=== PATIENT | female | born 1940 | race Caucasian/White ===

== ENCOUNTER → 2016-10-08 | Outpatient (REF) | payer MEDICARE ==
[2016-10-08 11:51] LABS: ALBUMIN 3.9 GM/DL (3.2-5.2); ALBUMIN/GLOBULIN RATIO 1.34 (1.00-1.93); ALKALINE PHOSPHATASE 64 U/L (45-117); ALT/SGPT 25 U/L (12-78); ANION GAP 8 MEQ/L (8-16); AST/SGOT 17 U/L (15-37); BILIRUBIN,TOTAL 0.4 MG/DL (0.2-1.0); BLOOD UREA NITROGEN 12 MG/DL (7-18); CALCIUM LEVEL 9.2 MG/DL (8.8-10.2); CARBON DIOXIDE LEVEL 31 MEQ/L (21-32); CHLORIDE LEVEL 96 MEQ/L (98-107); CHOLESTEROL LEVEL 269 MG/DL (<200); CREATININE FOR GFR 0.72 MG/DL (0.55-1.02); GLOMERULAR FILTRATION RATE > 60.0 (>39); GLUCOSE, FASTING 90 MG/DL (83-110); POTASSIUM SERUM 4.3 MEQ/L (3.5-5.1); SODIUM LEVEL 135 MEQ/L (136-145); TOTAL PROTEIN 6.8 GM/DL (6.4-8.2); TRIGLYCERIDES LEVEL 91 MG/DL (<150)
== END ==
LOC: M SFHCPLAZ 08:22
PROVIDERS: ATTEND Internal Medicine
DX: I10 Essential (primary) hypertension (principal); E78.00 Pure hypercholesterolemia, unspecified

== ENCOUNTER → 2017-03-10 | Outpatient (CLI) | payer MEDICARE ==
[~2017-03-10] VITALS: Ht 170.2 cm; Wt 52.2 kg
[~2017-03-10] MED LIST: ARIC10TA PO; CRES5TAB PO; FOSI20TA5 PO; LIDOCAINE 2% INJ 100 MG/5 ML SDV (FOR ANES.) As Ordered ONE; NORT10CA2 PO; NS 1,000 ML IV ONE; PROPOFOL 500 MG/50 ML VIAL As Ordered ONE; TEGR200T PO
[2017-03-10 10:57] VITALS: BP 145/72
== END | disposition home or self-care (01) ==
LOC: M OPP 08:42
PROVIDERS: ATTEND Internal Medicine Gastroenterology
DX: Z12.11 Encounter for screening for malignant neoplasm of colon (principal); D12.5 Benign neoplasm of sigmoid colon; K57.30 Diverticulosis of large intestine without perforation or abscess without bleeding; I10 Essential (primary) hypertension; E78.5 Hyperlipidemia, unspecified; G50.0 Trigeminal neuralgia; Z79.899 Other long term (current) drug therapy

== ENCOUNTER → 2017-05-06 | Outpatient (CLI) | payer MEDICARE ==
[~2017-05-06] MED LIST changes: -ARIC10TA PO; +ARIC1TAB2 PO; -LIDOCAINE 2% INJ 100 MG/5 ML SDV (FOR ANES.) As Ordered ONE; +MACR100C43 PO; -NS 1,000 ML IV ONE; -PROPOFOL 500 MG/50 ML VIAL As Ordered ONE
[2017-05-06 11:12] LABS: ALBUMIN 3.8 GM/DL (3.2-5.2); ALBUMIN/GLOBULIN RATIO 1.23 (1.00-1.93); ALKALINE PHOSPHATASE 74 U/L (45-117); ALT/SGPT 28 U/L (12-78); ANION GAP 6 MEQ/L (8-16); AST/SGOT 18 U/L (15-37); BILIRUBIN,TOTAL 0.5 MG/DL (0.2-1.0); BLOOD UREA NITROGEN 13 MG/DL (7-18); CALCIUM LEVEL 9.1 MG/DL (8.8-10.2); CARBON DIOXIDE LEVEL 32 MEQ/L (21-32); CHLORIDE LEVEL 106 MEQ/L (98-107); CHOLESTEROL LEVEL 234 MG/DL (<200); CREATININE FOR GFR 0.72 MG/DL (0.55-1.02); GLOMERULAR FILTRATION RATE > 60.0 (>39); GLUCOSE, FASTING 78 MG/DL (83-110); POTASSIUM SERUM 4.5 MEQ/L (3.5-5.1); SODIUM LEVEL 144 MEQ/L (136-145); TOTAL PROTEIN 6.9 GM/DL (6.4-8.2); TRIGLYCERIDES LEVEL 92 MG/DL (<150)
== END ==
LOC: M SMT 08:27
PROVIDERS: ATTEND Internal Medicine
DX: Z00.00 Encounter for general adult medical examination without abnormal findings (principal); E78.00 Pure hypercholesterolemia, unspecified; I10 Essential (primary) hypertension

== ENCOUNTER 2017-06-19 06:57 | Emergency (ER) | payer MEDICARE ==
[~2017-06-19] VITALS: Ht 167.6 cm; Wt 47.7 kg
[~2017-06-19 06:57] MED LIST changes: -MACR100C43 PO
[2017-06-19] MEDS ORDERED: MECLIZINE 12.5 MG TAB PO ONE (07:45)
[2017-06-19 08:19] LABS: BASO % 0.3 % (0.0-1.0); EOS % 0.6 % (0.0-3.0); IMMATURE GRANULOCYTE % 0.3 % (0-0); LYMPH % 11.4 % (24.0-44.0); MEAN CORPUSCULAR HEMOGLOBIN 33.2 pg (27.0-33.0); MEAN CORPUSCULAR HGB CONC 34.3 g/dl (32.0-36.5); MEAN CORPUSCULAR VOLUME 96.6 fl (80.0-96.0); MONO # 0.3 10^3/uL (0.0-0.8); MONO % 10.5 % (0.0-5.0); NEUTROPHILS # 2.5 10^3/uL (1.8-7.7); NEUTROPHILS % 76.9 % (36.0-66.0); PLATELET COUNT, AUTOMATED 197 10^3/uL (150-450); RED CELL DISTRIBUTION WIDTH 12.5 % (11.5-14.5); WHITE BLOOD COUNT 3.3 10^3/uL (4.0-10.0)
[2017-06-19 08:21] LABS: LYMPH # 0.4 10^3/uL (1.5-4.5)
--- NOTE | 2017-06-19 08:24 | REP ---
CT Head without contrast HISTORY: Vertigo COMPARISON: None Areas of decreased attenuation are present in the periventricular white matter. This represents small-vessel ischemic disease. There is no intraparenchymal hemorrhage, acute infarct, mass or midline shift. The ventricular system and cortical sulci are dilated consistent with minimal volume loss. There is no extra cerebral collection. There is no fracture. The visualized sinuses are clear. A sebaceous cyst is present in the subcutaneous tissue overlying the right parietal bone. IMPRESSION: 1. Small vessel ischemic disease per 2. Minimal volume loss. Signed by Rashid Medrano MD 06/19/2017 08:16 A
--- NOTE | 2017-06-19 09:26 | REP ---
Chest two views HISTORY: Weakness Comparison: 02/25/2012 The lungs are hyperinflated. The lungs are clear. The heart is normal in size. The pulmonary vasculature is normal in appearance. The bony structure is intact. IMPRESSION: No acute disease. Signed by Rashid Medrano MD 06/19/2017 09:17 A
[2017-06-19 09:29] LABS: ALBUMIN 3.6 GM/DL (3.2-5.2); ALBUMIN/GLOBULIN RATIO 1.24 (1.00-1.93); ALKALINE PHOSPHATASE 58 U/L (45-117); ALT/SGPT 28 U/L (12-78); ANION GAP 5 MEQ/L (8-16); AST/SGOT 21 U/L (15-37); BILIRUBIN,DIRECT 0.1 MG/DL (0.0-0.2); BILIRUBIN,TOTAL 0.4 MG/DL (0.2-1.0); BLOOD UREA NITROGEN 16 MG/DL (7-18); CALCIUM LEVEL 8.9 MG/DL (8.8-10.2); CARBON DIOXIDE LEVEL 32 MEQ/L (21-32); CHLORIDE LEVEL 102 MEQ/L (98-107); CREATININE FOR GFR 0.67 MG/DL (0.55-1.02); GLOMERULAR FILTRATION RATE > 60.0 (>39); GLUCOSE, FASTING 85 MG/DL (83-110); POTASSIUM SERUM 3.9 MEQ/L (3.5-5.1); SODIUM LEVEL 139 MEQ/L (136-145); TOTAL PROTEIN 6.5 GM/DL (6.4-8.2)
--- NOTE | 2017-06-19 13:20 | REP ---
MR BRAIN WITHOUT CONTRAST: HISTORY: Confusion. COMPARISON: CT 06/19/2017. Areas of increased signal intensity on T2-weighted images are present in the periventricular and subcortical white matter. This represents small vessel ischemic disease. There is no intraparenchymal hemorrhage, acute infarct, mass or midline shift. The ventricular system and cortical sulci are dilated consistent with minimal volume loss. There is no extracerebral collection. The sinuses are clear. IMPRESSION: 1. Small vessel ischemic disease. 2. Minimal volume loss. Signed by Rashid Medrano MD 06/19/2017 01:25 P
[2017-06-19 14:19] LABS: CARBAMAZEPINE (TEGRETOL) LEVEL 17.7 UG/ML (4.0-10.0)
[2017-06-19] MEDS ORDERED: MACR100C43 PO (14:35)
[2017-06-19 14:52] VITALS: BP 158/72
--- NOTE | 2017-06-19 20:46 | ECGEPIP ---
Stationary ECG Study [facility] - ED Test Date: 2017-06-19 Pat Name: WILLIE ROBERTS Department: Room: - Gender: F Cd Mixer: torie : 1940 Requested By: JOSEPH Jeong Order Number: [id number] Reading MD: Justina Gallego Measurements Intervals [place] Rate: 78 P: 86 MN: 195 QRS: 56 QRSD: 100 T: 53 QT: 375 QTc: 427 Interpretive Statements SINUS RHYTHM SIMILAR 02/25/12 Electronically Signed On 06-19-2017 20:45:51 EDT by Justina Gallego
== END 2017-06-19 14:54 | disposition home or self-care (01) ==
LOC: M ED 06:57
DX: R27.0 Ataxia, unspecified (principal); N39.0 Urinary tract infection, site not specified; F03.90 Unspecified dementia, unspecified severity, without behavioral disturbance, psychotic disturbance, mood disturbance, and anxiety; G50.0 Trigeminal neuralgia; I10 Essential (primary) hypertension; Z79.899 Other long term (current) drug therapy

== ENCOUNTER 2017-10-20 11:44 | Inpatient (IN) | payer MEDICARE ==
[2017-10-20] MEDS: NS 1,000 ML IV (13:16)
[2017-10-20 13:31] LABS: BASO % 0.3 % (0.0-1.0); EOS % 0.6 % (0.0-3.0); HEMATOCRIT 38.4 % (36.0-47.0); IMMATURE GRANULOCYTE % 1.1 % (0-0); LYMPH # 0.5 10^3/uL (1.5-4.5); LYMPH % 14.3 % (24.0-44.0); MEAN CORPUSCULAR HEMOGLOBIN 33.3 pg (27.0-33.0); MEAN CORPUSCULAR HGB CONC 33.9 g/dl (32.0-36.5); MEAN CORPUSCULAR VOLUME 98.5 fl (80.0-96.0); MONO # 0.3 10^3/uL (0.0-0.8); MONO % 8.3 % (0.0-5.0); NEUTROPHILS # 2.6 10^3/uL (1.8-7.7); NEUTROPHILS % 75.4 % (36.0-66.0); PLATELET COUNT, AUTOMATED 181 10^3/uL (150-450); RED CELL DISTRIBUTION WIDTH 12.4 % (11.5-14.5); WHITE BLOOD COUNT 3.5 10^3/uL (4.0-10.0)
[2017-10-20 13:35] LABS: ANION GAP 8 MEQ/L (8-16); BLOOD UREA NITROGEN 16 MG/DL (7-18); CALCIUM LEVEL 8.5 MG/DL (8.8-10.2); CARBON DIOXIDE LEVEL 29 MEQ/L (21-32); CHLORIDE LEVEL 103 MEQ/L (98-107); CREATININE FOR GFR 0.61 MG/DL (0.55-1.30); GLOMERULAR FILTRATION RATE > 60.0 (>39); GLUCOSE, FASTING 109 MG/DL (70-100); POTASSIUM SERUM 3.9 MEQ/L (3.5-5.1); SODIUM LEVEL 140 MEQ/L (136-145)
[2017-10-20] MEDS: D5W/0.45% SODIUM CHLORIDE 1,000 ML IV ×2 (14:58→18:34)
[2017-10-20] MEDS ORDERED: MORPHINE 2 MG/ML 1ML SYRINGE (J2270) IV (15:00)
[2017-10-20] MEDS ORDERED: ONDANSETRON 4MG/2ML VIAL (J2405) IV ×2 (15:00→18:15)
[2017-10-20 15:02] LABS: INR 0.99; PROTHROMBIN TIME 13.2 SECONDS (12.4-14.5)
[2017-10-20 15:03] LABS: PARTIAL THROMBOPLASTIN TIME 23.2 SECONDS (26.8-37.9)
[2017-10-20] MEDS: ceFAZolin 2 GM/D5W 50 ML IV BAG (J0690 PER 500MG) As Ordered (16:40)
[2017-10-20] MEDS ORDERED: KETAMINE HCL 200 MG/20 ML VIAL As Ordered (16:41)
[2017-10-20] MEDS ORDERED: PROPOFOL 200 MG/20 ML VIAL As Ordered ×2 (16:41)
[2017-10-20] MEDS ORDERED: fentaNYL 100 MCG/2 ML INJECTION (J3010) As Ordered (16:41)
[2017-10-20] MEDS ORDERED: MIDAZOLAM INJ 2 MG/2 ML VIAL (J2250) As Ordered (16:41)
[2017-10-20] MEDS ORDERED: LIDOCAINE 2% INJ 100 MG/5 ML SDV (FOR ANES.) As Ordered (16:41)
[2017-10-20] MEDS: ceFAZolin 1GM INJ (J0690 PER 500MG) As Ordered (16:45)
[2017-10-20] MEDS: EPINEPHrine INJ 1 MG/ML 1ML AMP As Ordered (17:00)
[2017-10-20] MEDS: TRANEXAMIC ACID 100 MG/ML 10ML VIAL As Ordered (17:00)
[2017-10-20] MEDS ORDERED: PHENYLephrine HCL 500 MCG/5 ML (100MCG/ML) SYRINGE (J2370) As Ordered (17:05)
[2017-10-20] MEDS: LR 1,000 ML IV (17:43)
[2017-10-20] MEDS ORDERED: PERCOCET 5MG/325MG TAB PO (18:15)
[2017-10-20] MEDS ORDERED: HYDROmorphone HCL 1 MG/ML SYRINGE (J1170) IV (18:15)
[2017-10-20] MEDS ORDERED: fentaNYL 100 MCG/2 ML INJECTION (J3010) IV (18:15)
[2017-10-20] MEDS: PANTOPRAZOLE 40MG INJ (PROTONIX) (C9113) IV (20:04)
[2017-10-20] MEDS: NORTRIPTYLINE 10 MG CAP PO (20:04)
[2017-10-20] MEDS: carBAMazepine XR 200 MG TAB PO (20:04)
[2017-10-20] MEDS: DOCUSATE SODIUM 100 MG CAP PO (20:05)
[2017-10-20] MEDS: ROSUVASTATIN 10 MG TAB (CRESTOR) PO (20:05)
[2017-10-20] MEDS: DONEPEZIL 5 MG TAB PO (20:05)
[2017-10-20] MEDS: ACETAMINOPHEN TAB 650MG DOSE (2X325MG) PO (20:05)
[2017-10-21] MEDS: MORPHINE 2 MG/ML 1ML SYRINGE (J2270) IV (03:03)
[2017-10-21 07:04] LABS: HEMATOCRIT 31.2 % (36.0-47.0); MEAN CORPUSCULAR HEMOGLOBIN 33.3 pg (27.0-33.0); MEAN CORPUSCULAR HGB CONC 34.9 g/dl (32.0-36.5); MEAN CORPUSCULAR VOLUME 95.4 fl (80.0-96.0); PLATELET COUNT, AUTOMATED 170 10^3/uL (150-450); RED BLOOD COUNT 3.27 10^6/uL (4.00-5.40); WHITE BLOOD COUNT 5.2 10^3/uL (4.0-10.0)
[2017-10-21 07:17] LABS: ANION GAP 7 MEQ/L (8-16); BLOOD UREA NITROGEN 11 MG/DL (7-18); CALCIUM LEVEL 8.1 MG/DL (8.8-10.2); CARBON DIOXIDE LEVEL 30 MEQ/L (21-32); CHLORIDE LEVEL 102 MEQ/L (98-107); GLOMERULAR FILTRATION RATE > 60.0 (>39); GLUCOSE, FASTING 132 MG/DL (70-100); POTASSIUM SERUM 3.5 MEQ/L (3.5-5.1); SODIUM LEVEL 139 MEQ/L (136-145)
[2017-10-21 07:29] LABS: HEMOGLOBIN 10.9 g/dl (12.0-16.0)
[2017-10-21] MEDS: DOCUSATE SODIUM 100 MG CAP PO ×2 (09:02→21:01)
[2017-10-21] MEDS: MIRALAX *UNIT DOSE* 17GM PACKET PO (09:02)
[2017-10-21] MEDS: carBAMazepine XR 200 MG TAB PO ×2 (09:02→21:00)
[2017-10-21] MEDS: traMADol 50 MG TAB PO ×2 (09:03→17:28)
[2017-10-21] MEDS: PANTOPRAZOLE 40MG INJ (PROTONIX) (C9113) IV (17:26)
[2017-10-21] MEDS: WARFARIN SOD 5 MG TAB PO (17:27)
[2017-10-21] MEDS: NORTRIPTYLINE 10 MG CAP PO (20:58)
[2017-10-21] MEDS: DONEPEZIL 5 MG TAB PO (20:59)
[2017-10-22 06:52] LABS: HEMATOCRIT 31.7 % (36.0-47.0); HEMOGLOBIN 10.9 g/dl (12.0-16.0); MEAN CORPUSCULAR HEMOGLOBIN 33.2 pg (27.0-33.0); MEAN CORPUSCULAR HGB CONC 34.4 g/dl (32.0-36.5); MEAN CORPUSCULAR VOLUME 96.6 fl (80.0-96.0); PLATELET COUNT, AUTOMATED 156 10^3/uL (150-450); RED BLOOD COUNT 3.28 10^6/uL (4.00-5.40); RED CELL DISTRIBUTION WIDTH 12.1 % (11.5-14.5); WHITE BLOOD COUNT 6.9 10^3/uL (4.0-10.0)
[2017-10-22 07:06] LABS: INR 1.12; PROTHROMBIN TIME 14.6 SECONDS (12.4-14.5)
[2017-10-22 07:14] LABS: ANION GAP 4 MEQ/L (8-16); BLOOD UREA NITROGEN 16 MG/DL (7-18); CALCIUM LEVEL 8.5 MG/DL (8.8-10.2); CARBON DIOXIDE LEVEL 32 MEQ/L (21-32); CHLORIDE LEVEL 102 MEQ/L (98-107); CREATININE FOR GFR 0.48 MG/DL (0.55-1.30); GLOMERULAR FILTRATION RATE > 60.0 (>39); GLUCOSE, FASTING 136 MG/DL (70-100); POTASSIUM SERUM 3.6 MEQ/L (3.5-5.1); SODIUM LEVEL 138 MEQ/L (136-145)
[2017-10-22] MEDS: INFLUENZA VIRUS VACCINE HIGH DOSE 0.5 ML SYRINGE (90662) IM (09:00)
[2017-10-22] MEDS: DOCUSATE SODIUM 100 MG CAP PO ×2 (09:00→22:27)
[2017-10-22] MEDS: MIRALAX *UNIT DOSE* 17GM PACKET PO (09:00)
[2017-10-22] MEDS: carBAMazepine XR 200 MG TAB PO ×2 (14:14→22:28)
[2017-10-22] MEDS: PANTOPRAZOLE 40MG INJ (PROTONIX) (C9113) IV (17:29)
[2017-10-22] MEDS: WARFARIN SOD 7.5 MG TAB PO (17:29)
[2017-10-22] MEDS: ACETAMINOPHEN TAB 650MG DOSE (2X325MG) PO (17:29)
[2017-10-22] MEDS: ROSUVASTATIN 10 MG TAB (CRESTOR) PO (22:27)
[2017-10-22] MEDS: NORTRIPTYLINE 10 MG CAP PO (22:28)
[2017-10-22] MEDS: traMADol 50 MG TAB PO (22:28)
[2017-10-22] MEDS: DONEPEZIL 5 MG TAB PO (22:29)
[2017-10-23 06:53] LABS: HEMATOCRIT 30.5 % (36.0-47.0); HEMOGLOBIN 10.5 g/dl (12.0-16.0); MEAN CORPUSCULAR HEMOGLOBIN 33.3 pg (27.0-33.0); MEAN CORPUSCULAR HGB CONC 34.4 g/dl (32.0-36.5); MEAN CORPUSCULAR VOLUME 96.8 fl (80.0-96.0); PLATELET COUNT, AUTOMATED 177 10^3/uL (150-450); RED BLOOD COUNT 3.15 10^6/uL (4.00-5.40); RED CELL DISTRIBUTION WIDTH 12.4 % (11.5-14.5); WHITE BLOOD COUNT 5.7 10^3/uL (4.0-10.0)
[2017-10-23 07:03] LABS: INR 1.64; PROTHROMBIN TIME 19.9 SECONDS (12.4-14.5)
[2017-10-23 07:08] LABS: ANION GAP 5 MEQ/L (8-16); BLOOD UREA NITROGEN 14 MG/DL (7-18); CALCIUM LEVEL 8.5 MG/DL (8.8-10.2); CARBON DIOXIDE LEVEL 32 MEQ/L (21-32); CHLORIDE LEVEL 101 MEQ/L (98-107); CREATININE FOR GFR 0.42 MG/DL (0.55-1.30); GLOMERULAR FILTRATION RATE > 60.0 (>39); GLUCOSE, FASTING 107 MG/DL (70-100); POTASSIUM SERUM 3.9 MEQ/L (3.5-5.1); SODIUM LEVEL 138 MEQ/L (136-145)
[2017-10-23] MEDS: carBAMazepine XR 200 MG TAB PO ×2 (09:30→21:16)
[2017-10-23] MEDS: MIRALAX *UNIT DOSE* 17GM PACKET PO (09:30)
[2017-10-23] MEDS: DOCUSATE SODIUM 100 MG CAP PO ×2 (09:31→21:16)
[2017-10-23] MEDS: traMADol 50 MG TAB PO ×2 (09:31→21:15)
[2017-10-23 13:47] LABS: INR 1.75
[2017-10-23] MEDS: WARFARIN SOD 5 MG TAB PO (17:19)
[2017-10-23] MEDS: PANTOPRAZOLE 40MG INJ (PROTONIX) (C9113) IV (17:19)
[2017-10-23] MEDS: NORTRIPTYLINE 10 MG CAP PO (21:16)
[2017-10-23] MEDS: DONEPEZIL 5 MG TAB PO (21:16)
[2017-10-24] MEDS: MIRALAX *UNIT DOSE* 17GM PACKET PO (09:00)
[2017-10-24] MEDS: DOCUSATE SODIUM 100 MG CAP PO ×2 (09:00→20:20)
[2017-10-24] MEDS: carBAMazepine XR 200 MG TAB PO ×2 (10:31→20:21)
[2017-10-24] MEDS: WARFARIN SOD 5 MG TAB PO (17:39)
[2017-10-24] MEDS: PANTOPRAZOLE 40MG INJ (PROTONIX) (C9113) IV (17:39)
[2017-10-24] MEDS: traMADol 50 MG TAB PO (20:20)
[2017-10-24] MEDS: ROSUVASTATIN 10 MG TAB (CRESTOR) PO (20:20)
[2017-10-24] MEDS: DONEPEZIL 5 MG TAB PO (20:21)
[2017-10-24] MEDS: NORTRIPTYLINE 10 MG CAP PO (20:21)
[2017-10-25 08:08] LABS: INR 1.91; PROTHROMBIN TIME 22.5 SECONDS (12.4-14.5)
[2017-10-25] MEDS: DOCUSATE SODIUM 100 MG CAP PO ×2 (09:20→20:16)
[2017-10-25] MEDS: MIRALAX *UNIT DOSE* 17GM PACKET PO (09:21)
[2017-10-25] MEDS: carBAMazepine XR 200 MG TAB PO ×2 (09:21→20:16)
[2017-10-25] MEDS: WARFARIN SOD 2.5 MG TAB PO (17:00)
[2017-10-25] MEDS: PANTOPRAZOLE 40MG INJ (PROTONIX) (C9113) IV (17:35)
[2017-10-25] MEDS: ACETAMINOPHEN TAB 650MG DOSE (2X325MG) PO ×2 (17:36→20:38)
[2017-10-25] MEDS: traMADol 50 MG TAB PO (17:36)
[2017-10-25] MEDS: NORTRIPTYLINE 10 MG CAP PO (20:16)
[2017-10-25] MEDS: DONEPEZIL 5 MG TAB PO (20:16)
[2017-10-25] MEDS: MORPHINE 2 MG/ML 1ML SYRINGE (J2270) IV ×3 (20:17→20:28)
[2017-10-26 06:52] LABS: PROTHROMBIN TIME 19.5 SECONDS (12.4-14.5)
[2017-10-26] MEDS: MIRALAX *UNIT DOSE* 17GM PACKET PO (09:29)
[2017-10-26] MEDS: ACETAMINOPHEN TAB 650MG DOSE (2X325MG) PO ×2 (09:29→16:36)
[2017-10-26] MEDS: carBAMazepine XR 200 MG TAB PO ×2 (09:29→20:48)
[2017-10-26] MEDS: DOCUSATE SODIUM 100 MG CAP PO ×2 (09:29→20:48)
[2017-10-26] MEDS: PANTOPRAZOLE 40MG TAB (PROTONIX) PO (16:35)
[2017-10-26] MEDS: WARFARIN SOD 5 MG TAB PO (16:36)
[2017-10-26] MEDS: ROSUVASTATIN 10 MG TAB (CRESTOR) PO (20:47)
[2017-10-26] MEDS: NORTRIPTYLINE 10 MG CAP PO (20:47)
[2017-10-26] MEDS: DONEPEZIL 5 MG TAB PO (20:48)
[2017-10-27 09:21] LABS: HEMATOCRIT 32.9 % (36.0-47.0); HEMOGLOBIN 10.9 g/dl (12.0-16.0); MEAN CORPUSCULAR HEMOGLOBIN 32.6 pg (27.0-33.0); MEAN CORPUSCULAR HGB CONC 33.1 g/dl (32.0-36.5); MEAN CORPUSCULAR VOLUME 98.5 fl (80.0-96.0); PLATELET COUNT, AUTOMATED 334 10^3/uL (150-450); RED BLOOD COUNT 3.34 10^6/uL (4.00-5.40); RED CELL DISTRIBUTION WIDTH 12.3 % (11.5-14.5); WHITE BLOOD COUNT 4.5 10^3/uL (4.0-10.0)
[2017-10-27 09:37] LABS: ANION GAP 6 MEQ/L (8-16); BLOOD UREA NITROGEN 16 MG/DL (7-18); CALCIUM LEVEL 8.3 MG/DL (8.8-10.2); CARBON DIOXIDE LEVEL 31 MEQ/L (21-32); CHLORIDE LEVEL 103 MEQ/L (98-107); GLOMERULAR FILTRATION RATE > 60.0 (>39); GLUCOSE, FASTING 109 MG/DL (70-100); POTASSIUM SERUM 4.1 MEQ/L (3.5-5.1); SODIUM LEVEL 140 MEQ/L (136-145)
[2017-10-27] MEDS: DOCUSATE SODIUM 100 MG CAP PO ×2 (09:39→20:04)
[2017-10-27] MEDS: MIRALAX *UNIT DOSE* 17GM PACKET PO (09:39)
[2017-10-27] MEDS: carBAMazepine XR 200 MG TAB PO ×2 (09:39→20:03)
[2017-10-27] MEDS: PANTOPRAZOLE 40MG TAB (PROTONIX) PO (09:39)
[2017-10-27 09:41] LABS: INR 1.65
[2017-10-27 13:40] LABS: HEMATOCRIT 35.3 % (36.0-47.0); HEMOGLOBIN 11.8 g/dl (12.0-16.0); MEAN CORPUSCULAR HEMOGLOBIN 32.9 pg (27.0-33.0); MEAN CORPUSCULAR HGB CONC 33.4 g/dl (32.0-36.5); MEAN CORPUSCULAR VOLUME 98.3 fl (80.0-96.0); PLATELET COUNT, AUTOMATED 391 10^3/uL (150-450); RED BLOOD COUNT 3.59 10^6/uL (4.00-5.40); RED CELL DISTRIBUTION WIDTH 12.3 % (11.5-14.5); WHITE BLOOD COUNT 5.1 10^3/uL (4.0-10.0)
[2017-10-27 14:08] LABS: ANION GAP 4 MEQ/L (8-16); BLOOD UREA NITROGEN 18 MG/DL (7-18); CALCIUM LEVEL 8.5 MG/DL (8.8-10.2); CARBON DIOXIDE LEVEL 34 MEQ/L (21-32); CHLORIDE LEVEL 100 MEQ/L (98-107); CREATININE FOR GFR 0.47 MG/DL (0.55-1.30); GLOMERULAR FILTRATION RATE > 60.0 (>39); GLUCOSE, FASTING 134 MG/DL (70-100); POTASSIUM SERUM 4.4 MEQ/L (3.5-5.1); SODIUM LEVEL 138 MEQ/L (136-145)
[2017-10-27] MEDS: WARFARIN SOD 5 MG TAB PO (17:05)
[2017-10-27] MEDS: NORTRIPTYLINE 10 MG CAP PO (20:03)
[2017-10-27] MEDS: DONEPEZIL 5 MG TAB PO (20:03)
[2017-10-27] MEDS: traMADol 50 MG TAB PO (20:03)
[2017-10-28] MEDS: DOCUSATE SODIUM 100 MG CAP PO ×2 (09:46→19:37)
[2017-10-28] MEDS: carBAMazepine XR 200 MG TAB PO ×2 (09:46→19:37)
[2017-10-28] MEDS: PANTOPRAZOLE 40MG TAB (PROTONIX) PO (09:46)
[2017-10-28] MEDS: ACETAMINOPHEN TAB 650MG DOSE (2X325MG) PO (09:47)
[2017-10-28] MEDS: MIRALAX *UNIT DOSE* 17GM PACKET PO (09:48)
[2017-10-28] MEDS: WARFARIN SOD 2.5 MG TAB PO (17:37)
[2017-10-28] MEDS: DONEPEZIL 5 MG TAB PO (19:37)
[2017-10-28] MEDS: ROSUVASTATIN 10 MG TAB (CRESTOR) PO (19:37)
[2017-10-28] MEDS: NORTRIPTYLINE 10 MG CAP PO (19:38)
[2017-10-29] MEDS: traMADol 50 MG TAB PO (02:34)
[2017-10-29] MEDS: DOCUSATE SODIUM 100 MG CAP PO ×2 (08:23→23:18)
[2017-10-29] MEDS: PANTOPRAZOLE 40MG TAB (PROTONIX) PO (08:23)
[2017-10-29] MEDS: carBAMazepine XR 200 MG TAB PO ×2 (08:23→23:18)
[2017-10-29] MEDS: MIRALAX *UNIT DOSE* 17GM PACKET PO (08:24)
[2017-10-29] MEDS: WARFARIN SOD 2.5 MG TAB PO (16:14)
[2017-10-29] MEDS: NORTRIPTYLINE 10 MG CAP PO (23:18)
[2017-10-29] MEDS: DONEPEZIL 5 MG TAB PO (23:18)
[2017-10-30] MEDS ORDERED: BISACODYL 10 MG SUPP PR (07:15)
[2017-10-30 07:19] LABS: INR 1.16
[2017-10-30] MEDS: PANTOPRAZOLE 40MG TAB (PROTONIX) PO (08:42)
[2017-10-30] MEDS: MOM 30ML SUSPENSION UDC PO (08:42)
[2017-10-30] MEDS: DOCUSATE SODIUM 100 MG CAP PO ×2 (08:42→20:01)
[2017-10-30] MEDS: carBAMazepine XR 200 MG TAB PO ×2 (08:42→19:59)
[2017-10-30] MEDS: MIRALAX *UNIT DOSE* 17GM PACKET PO (08:42)
[2017-10-30] MEDS: WARFARIN SOD 5 MG TAB PO (16:08)
[2017-10-30] MEDS: NORTRIPTYLINE 10 MG CAP PO (19:59)
[2017-10-30] MEDS: ACETAMINOPHEN TAB 650MG DOSE (2X325MG) PO (19:59)
[2017-10-30] MEDS: ROSUVASTATIN 10 MG TAB (CRESTOR) PO (20:00)
[2017-10-30] MEDS: DONEPEZIL 5 MG TAB PO (20:00)
[2017-10-31] MEDS: ACETAMINOPHEN TAB 650MG DOSE (2X325MG) PO ×2 (07:55→20:47)
[2017-10-31] MEDS: MIRALAX *UNIT DOSE* 17GM PACKET PO (07:55)
[2017-10-31] MEDS: MOM 30ML SUSPENSION UDC PO (07:55)
[2017-10-31] MEDS: DOCUSATE SODIUM 100 MG CAP PO ×2 (07:56→20:48)
[2017-10-31] MEDS: carBAMazepine XR 200 MG TAB PO ×2 (07:56→20:48)
[2017-10-31] MEDS: PANTOPRAZOLE 40MG TAB (PROTONIX) PO (07:56)
[2017-10-31 08:24] LABS: HEMATOCRIT 36.2 % (36.0-47.0); HEMOGLOBIN 11.8 g/dl (12.0-16.0); MEAN CORPUSCULAR HEMOGLOBIN 32.8 pg (27.0-33.0); MEAN CORPUSCULAR HGB CONC 32.6 g/dl (32.0-36.5); MEAN CORPUSCULAR VOLUME 100.6 fl (80.0-96.0); PLATELET COUNT, AUTOMATED 538 10^3/uL (150-450); WHITE BLOOD COUNT 5.2 10^3/uL (4.0-10.0)
[2017-10-31 08:50] LABS: ANION GAP 6 MEQ/L (8-16); BLOOD UREA NITROGEN 16 MG/DL (7-18); CALCIUM LEVEL 8.5 MG/DL (8.8-10.2); CARBON DIOXIDE LEVEL 33 MEQ/L (21-32); CHLORIDE LEVEL 100 MEQ/L (98-107); CREATININE FOR GFR 0.64 MG/DL (0.55-1.30); GLOMERULAR FILTRATION RATE > 60.0 (>39); GLUCOSE, FASTING 211 MG/DL (70-100); INR 1.05; POTASSIUM SERUM 4.5 MEQ/L (3.5-5.1); PROTHROMBIN TIME 13.9 SECONDS (12.4-14.5); SODIUM LEVEL 139 MEQ/L (136-145)
[2017-10-31] MEDS: WARFARIN SOD 5 MG TAB PO (17:25)
[2017-10-31] MEDS: DONEPEZIL 5 MG TAB PO (20:48)
[2017-10-31] MEDS: NORTRIPTYLINE 10 MG CAP PO (20:48)
[2017-11-01] MEDS: ACETAMINOPHEN TAB 650MG DOSE (2X325MG) PO ×2 (04:34→15:34)
[2017-11-01] MEDS: DOCUSATE SODIUM 100 MG CAP PO ×2 (08:34→19:53)
[2017-11-01] MEDS: PANTOPRAZOLE 40MG TAB (PROTONIX) PO (08:35)
[2017-11-01] MEDS: MIRALAX *UNIT DOSE* 17GM PACKET PO (08:35)
[2017-11-01] MEDS: carBAMazepine XR 200 MG TAB PO ×2 (08:35→19:53)
[2017-11-01] MEDS: MOM 30ML SUSPENSION UDC PO (08:35)
[2017-11-01] MEDS: WARFARIN SOD 5 MG TAB PO (17:57)
[2017-11-01] MEDS: NORTRIPTYLINE 10 MG CAP PO (19:53)
[2017-11-01] MEDS: ROSUVASTATIN 10 MG TAB (CRESTOR) PO (19:53)
[2017-11-01] MEDS: DONEPEZIL 5 MG TAB PO (19:54)
[2017-11-02] MEDS: traMADol 50 MG TAB PO ×3 (00:58→20:39)
[2017-11-02] MEDS: PANTOPRAZOLE 40MG TAB (PROTONIX) PO (08:37)
[2017-11-02] MEDS: carBAMazepine XR 200 MG TAB PO ×2 (08:37→20:38)
[2017-11-02] MEDS: MIRALAX *UNIT DOSE* 17GM PACKET PO (08:37)
[2017-11-02] MEDS: DOCUSATE SODIUM 100 MG CAP PO ×2 (08:37→20:39)
[2017-11-02] MEDS: MOM 30ML SUSPENSION UDC PO (08:42)
[2017-11-02] MEDS: ACETAMINOPHEN TAB 650MG DOSE (2X325MG) PO (11:35)
[2017-11-02] MEDS: WARFARIN SOD 5 MG TAB PO (17:40)
[2017-11-02] MEDS: NORTRIPTYLINE 10 MG CAP PO (20:39)
[2017-11-02] MEDS: DONEPEZIL 5 MG TAB PO (20:39)
[2017-11-03 06:34] LABS: INR 1.27; PROTHROMBIN TIME 16.2 SECONDS (12.4-14.5)
[2017-11-03] MEDS: MOM 30ML SUSPENSION UDC PO (08:09)
[2017-11-03] MEDS: MIRALAX *UNIT DOSE* 17GM PACKET PO (08:09)
[2017-11-03] MEDS: carBAMazepine XR 200 MG TAB PO ×2 (08:10→20:28)
[2017-11-03] MEDS: PANTOPRAZOLE 40MG TAB (PROTONIX) PO (08:10)
[2017-11-03] MEDS: traMADol 50 MG TAB PO ×2 (08:10→20:30)
[2017-11-03] MEDS: DOCUSATE SODIUM 100 MG CAP PO ×2 (08:11→20:28)
[2017-11-03 12:49] LABS: HEMATOCRIT 33.7 % (36.0-47.0); MEAN CORPUSCULAR HEMOGLOBIN 32.6 pg (27.0-33.0); MEAN CORPUSCULAR HGB CONC 32.6 g/dl (32.0-36.5); PLATELET COUNT, AUTOMATED 504 10^3/uL (150-450); RED BLOOD COUNT 3.37 10^6/uL (4.00-5.40); RED CELL DISTRIBUTION WIDTH 13.4 % (11.5-14.5); WHITE BLOOD COUNT 7.3 10^3/uL (4.0-10.0)
[2017-11-03 13:46] LABS: ANION GAP 6 MEQ/L (8-16); BLOOD UREA NITROGEN 12 MG/DL (7-18); CALCIUM LEVEL 8.4 MG/DL (8.8-10.2); CARBON DIOXIDE LEVEL 32 MEQ/L (21-32); CHLORIDE LEVEL 100 MEQ/L (98-107); CREATININE FOR GFR 0.56 MG/DL (0.55-1.30); GLOMERULAR FILTRATION RATE > 60.0 (>39); GLUCOSE, FASTING 106 MG/DL (70-100); POTASSIUM SERUM 4.6 MEQ/L (3.5-5.1); SODIUM LEVEL 138 MEQ/L (136-145)
[2017-11-03] MEDS: WARFARIN SOD 7.5 MG TAB PO (18:10)
[2017-11-03] MEDS: NORTRIPTYLINE 10 MG CAP PO (20:29)
[2017-11-03] MEDS: ROSUVASTATIN 10 MG TAB (CRESTOR) PO (20:29)
[2017-11-03] MEDS: DONEPEZIL 5 MG TAB PO (20:29)
[2017-11-04] MEDS: PANTOPRAZOLE 40MG TAB (PROTONIX) PO (08:58)
[2017-11-04] MEDS: MIRALAX *UNIT DOSE* 17GM PACKET PO (08:58)
[2017-11-04] MEDS: carBAMazepine XR 200 MG TAB PO ×2 (08:58→20:37)
[2017-11-04] MEDS: DOCUSATE SODIUM 100 MG CAP PO ×2 (08:58→20:36)
[2017-11-04] MEDS: MOM 30ML SUSPENSION UDC PO (08:58)
[2017-11-04] MEDS: traMADol 50 MG TAB PO (08:58)
[2017-11-04] MEDS: WARFARIN SOD 7.5 MG TAB PO (16:01)
[2017-11-04] MEDS: DONEPEZIL 5 MG TAB PO (20:36)
[2017-11-04] MEDS: ACETAMINOPHEN TAB 650MG DOSE (2X325MG) PO (20:37)
[2017-11-04] MEDS: NORTRIPTYLINE 10 MG CAP PO (20:37)
[2017-11-05] MEDS: PANTOPRAZOLE 40MG TAB (PROTONIX) PO (08:52)
[2017-11-05] MEDS: DOCUSATE SODIUM 100 MG CAP PO ×2 (08:52→21:42)
[2017-11-05] MEDS: carBAMazepine XR 200 MG TAB PO ×2 (08:52→21:42)
[2017-11-05] MEDS: MOM 30ML SUSPENSION UDC PO (08:53)
[2017-11-05] MEDS: ENOXAPARIN 40 MG/0.4 ML SYRINGE (J1650) SC (08:53)
[2017-11-05] MEDS: MIRALAX *UNIT DOSE* 17GM PACKET PO (08:53)
[2017-11-05] MEDS: ACETAMINOPHEN TAB 650MG DOSE (2X325MG) PO ×2 (11:43→21:45)
[2017-11-05] MEDS: DONEPEZIL 5 MG TAB PO (21:41)
[2017-11-05] MEDS: NORTRIPTYLINE 10 MG CAP PO (21:42)
[2017-11-05] MEDS: ROSUVASTATIN 10 MG TAB (CRESTOR) PO (21:44)
[2017-11-06] MEDS: traMADol 50 MG TAB PO (02:32)
[2017-11-06] MEDS: DOCUSATE SODIUM 100 MG CAP PO ×2 (07:32→21:18)
[2017-11-06] MEDS: ENOXAPARIN 40 MG/0.4 ML SYRINGE (J1650) SC (07:32)
[2017-11-06] MEDS: carBAMazepine XR 200 MG TAB PO ×2 (07:32→21:18)
[2017-11-06] MEDS: ACETAMINOPHEN TAB 650MG DOSE (2X325MG) PO (07:33)
[2017-11-06] MEDS: PANTOPRAZOLE 40MG TAB (PROTONIX) PO (07:33)
[2017-11-06] MEDS: MIRALAX *UNIT DOSE* 17GM PACKET PO (07:34)
[2017-11-06] MEDS: MOM 30ML SUSPENSION UDC PO (07:34)
[2017-11-06] MEDS: NORTRIPTYLINE 10 MG CAP PO (21:18)
[2017-11-06] MEDS: DONEPEZIL 5 MG TAB PO (21:18)
[2017-11-07] MEDS: MIRALAX *UNIT DOSE* 17GM PACKET PO (09:00)
[2017-11-07] MEDS: MOM 30ML SUSPENSION UDC PO (09:00)
[2017-11-07] MEDS: carBAMazepine XR 200 MG TAB PO ×2 (10:03→22:15)
[2017-11-07] MEDS: DOCUSATE SODIUM 100 MG CAP PO ×2 (10:03→22:15)
[2017-11-07] MEDS: PANTOPRAZOLE 40MG TAB (PROTONIX) PO (10:03)
[2017-11-07] MEDS: ENOXAPARIN 40 MG/0.4 ML SYRINGE (J1650) SC (10:13)
[2017-11-07] MEDS: ACETAMINOPHEN TAB 650MG DOSE (2X325MG) PO (22:15)
[2017-11-07] MEDS: DONEPEZIL 5 MG TAB PO (22:15)
[2017-11-07] MEDS: NORTRIPTYLINE 10 MG CAP PO (22:16)
[2017-11-07] MEDS: ROSUVASTATIN 10 MG TAB (CRESTOR) PO (22:16)
[2017-11-08] MEDS: MOM 30ML SUSPENSION UDC PO (09:00)
[2017-11-08] MEDS: MIRALAX *UNIT DOSE* 17GM PACKET PO (09:00)
[2017-11-08] MEDS: PANTOPRAZOLE 40MG TAB (PROTONIX) PO (09:21)
[2017-11-08] MEDS: carBAMazepine XR 200 MG TAB PO ×2 (09:21→20:37)
[2017-11-08] MEDS: DOCUSATE SODIUM 100 MG CAP PO ×2 (09:21→20:37)
[2017-11-08] MEDS: ENOXAPARIN 40 MG/0.4 ML SYRINGE (J1650) SC (11:29)
[2017-11-08] MEDS: ACETAMINOPHEN TAB 650MG DOSE (2X325MG) PO (20:36)
[2017-11-08] MEDS: DONEPEZIL 5 MG TAB PO (20:37)
[2017-11-08] MEDS: NORTRIPTYLINE 10 MG CAP PO (21:39)
[2017-11-09] MEDS: MIRALAX *UNIT DOSE* 17GM PACKET PO (09:00)
[2017-11-09] MEDS: MOM 30ML SUSPENSION UDC PO (09:28)
[2017-11-09] MEDS: PANTOPRAZOLE 40MG TAB (PROTONIX) PO (09:28)
[2017-11-09] MEDS: DOCUSATE SODIUM 100 MG CAP PO ×2 (09:28→19:25)
[2017-11-09] MEDS: carBAMazepine XR 200 MG TAB PO ×2 (09:28→19:25)
[2017-11-09] MEDS: ENOXAPARIN 40 MG/0.4 ML SYRINGE (J1650) SC (09:29)
[2017-11-09] MEDS: ROSUVASTATIN 10 MG TAB (CRESTOR) PO (19:25)
[2017-11-09] MEDS: DONEPEZIL 5 MG TAB PO (19:26)
[2017-11-09] MEDS: NORTRIPTYLINE 10 MG CAP PO (19:26)
[2017-11-10] MEDS: carBAMazepine XR 200 MG TAB PO ×2 (08:54→20:30)
[2017-11-10] MEDS: PANTOPRAZOLE 40MG TAB (PROTONIX) PO (08:54)
[2017-11-10] MEDS: DOCUSATE SODIUM 100 MG CAP PO ×2 (08:54→20:30)
[2017-11-10] MEDS: ENOXAPARIN 40 MG/0.4 ML SYRINGE (J1650) SC (08:56)
[2017-11-10] MEDS: MOM 30ML SUSPENSION UDC PO (08:57)
[2017-11-10] MEDS: MIRALAX *UNIT DOSE* 17GM PACKET PO (08:58)
[2017-11-10 12:15] LABS: HEMATOCRIT 35.3 % (36.0-47.0); HEMOGLOBIN 11.6 g/dl (12.0-16.0); MEAN CORPUSCULAR HGB CONC 32.9 g/dl (32.0-36.5); MEAN CORPUSCULAR VOLUME 100.3 fl (80.0-96.0); PLATELET COUNT, AUTOMATED 372 10^3/uL (150-450); RED BLOOD COUNT 3.52 10^6/uL (4.00-5.40); RED CELL DISTRIBUTION WIDTH 13.5 % (11.5-14.5); WHITE BLOOD COUNT 4.3 10^3/uL (4.0-10.0)
[2017-11-10 12:56] LABS: ANION GAP 6 MEQ/L (8-16); BLOOD UREA NITROGEN 15 MG/DL (7-18); CALCIUM LEVEL 8.3 MG/DL (8.8-10.2); CARBON DIOXIDE LEVEL 29 MEQ/L (21-32); CHLORIDE LEVEL 106 MEQ/L (98-107); CREATININE FOR GFR 0.36 MG/DL (0.55-1.30); GLOMERULAR FILTRATION RATE > 60.0 (>39); GLUCOSE, FASTING 83 MG/DL (70-100); POTASSIUM SERUM 4.5 MEQ/L (3.5-5.1); SODIUM LEVEL 141 MEQ/L (136-145)
[2017-11-10] MEDS: DONEPEZIL 5 MG TAB PO (20:29)
[2017-11-10] MEDS: traMADol 50 MG TAB PO (20:30)
[2017-11-10] MEDS: NORTRIPTYLINE 10 MG CAP PO (20:34)
[2017-11-11] MEDS: MIRALAX *UNIT DOSE* 17GM PACKET PO (09:00)
[2017-11-11] MEDS: MOM 30ML SUSPENSION UDC PO (09:00)
[2017-11-11] MEDS: PANTOPRAZOLE 40MG TAB (PROTONIX) PO (09:26)
[2017-11-11] MEDS: DOCUSATE SODIUM 100 MG CAP PO (09:26)
[2017-11-11] MEDS: carBAMazepine XR 200 MG TAB PO (09:26)
[2017-11-11] MEDS: ENOXAPARIN 40 MG/0.4 ML SYRINGE (J1650) SC (09:28)
== END 2017-11-11 12:05 | DRG 470 ==
LOC: M ED 11:44 → M ED INP 15:53 → M MS5PR 18:50
PROC: 0SRB04A Replacement of Left Hip Joint with Ceramic on Polyethylene Synthetic Substitute, Uncemented, Open Approach (ICD-10-PCS; principal; 2017-10-20 15:05)
DX: S72.002A Fracture of unspecified part of neck of left femur, initial encounter for closed fracture (principal); K57.32 Diverticulitis of large intestine without perforation or abscess without bleeding; I10 Essential (primary) hypertension; F31.9 Bipolar disorder, unspecified; K21.9 Gastro-esophageal reflux disease without esophagitis; F03.90 Unspecified dementia, unspecified severity, without behavioral disturbance, psychotic disturbance, mood disturbance, and anxiety; E78.5 Hyperlipidemia, unspecified; K44.9 Diaphragmatic hernia without obstruction or gangrene; W01.0XXA Fall on same level from slipping, tripping and stumbling without subsequent striking against object, initial encounter; Y92.009 Unspecified place in unspecified non-institutional (private) residence as the place of occurrence of the external cause; Z79.899 Other long term (current) drug therapy

== ENCOUNTER → 2017-11-25 | Outpatient (REF) | LOC: SKLAB3 10:34 | DX: M25.552 Pain in left hip (principal); W19.XXXD Unspecified fall, subsequent encounter; Z96.642 Presence of left artificial hip joint ==

== ENCOUNTER → 2017-11-27 | Outpatient (REF) ==
[2017-11-27 13:13] LABS: HEMATOCRIT 38.7 % (36.0-47.0); HEMOGLOBIN 12.7 g/dl (12.0-16.0); MEAN CORPUSCULAR HEMOGLOBIN 32.4 pg (27.0-33.0); MEAN CORPUSCULAR HGB CONC 32.8 g/dl (32.0-36.5); MEAN CORPUSCULAR VOLUME 98.7 fl (80.0-96.0); PLATELET COUNT, AUTOMATED 351 10^3/uL (150-450); RED BLOOD COUNT 3.92 10^6/uL (4.00-5.40); WHITE BLOOD COUNT 5.4 10^3/uL (4.0-10.0)
[2017-11-27 13:21] LABS: AMORPHOUS SEDIMENT LARGE (NEGATIVE); APPEARANCE, URINE CLOUDY (CLEAR); BACTERIA, URINE AUTO NEGATIVE (NEGATIVE); BILIRUBIN, URINE AUTO NEGATIVE (NEGATIVE); BLOOD, URINE BLOOD NEGATIVE (NEGATIVE); COLOR, URINE YELLOW (YELLOW); GLUCOSE, URINE (UA) AUTO NEGATIVE (NEGATIVE); KETONE, URINE AUTO NEGATIVE (NEGATIVE); LEUKOCYTE ESTERASE, URINE AUTO NEGATIVE (NEGATIVE); MUCUS, URINE SMALL (NEGATIVE); NITRITE, URINE AUTO NEGATIVE (NEGATIVE); PROTEIN, URINE AUTO NEGATIVE (NEGATIVE); RBC, URINE AUTO 1 /HPF (0-3); SPECIFIC GRAVITY URINE AUTO 1.016 (1.002-1.035); SQUAMOUS EPITHELIAL CELL UR AU 1 /HPF (0-6); UROBILINOGEN, URINE AUTO 0.2 mg/dL (0.0-2.0); WBC, URINE AUTO 3 /HPF (0-3)
[2017-11-27 14:07] LABS: ALBUMIN 3.3 GM/DL (3.2-5.2); ALKALINE PHOSPHATASE 376 U/L (45-117); ALT/SGPT 39 U/L (12-78); ANION GAP 9 MEQ/L (8-16); AST/SGOT 21 U/L (7-37); BILIRUBIN,TOTAL 0.4 MG/DL (0.2-1.0); BLOOD UREA NITROGEN 10 MG/DL (7-18); CALCIUM LEVEL 9.2 MG/DL (8.8-10.2); CARBON DIOXIDE LEVEL 29 MEQ/L (21-32); CHLORIDE LEVEL 97 MEQ/L (98-107); CREATININE FOR GFR 0.42 MG/DL (0.55-1.30); GLOMERULAR FILTRATION RATE > 60.0 (>39); GLUCOSE, FASTING 99 MG/DL (70-100); POTASSIUM SERUM 4.4 MEQ/L (3.5-5.1); SODIUM LEVEL 135 MEQ/L (136-145); TOTAL PROTEIN 6.6 GM/DL (6.4-8.2)
== END ==
LOC: SKLAB3 10:56
DX: F03.90 Unspecified dementia, unspecified severity, without behavioral disturbance, psychotic disturbance, mood disturbance, and anxiety (principal); R29.6 Repeated falls

== ENCOUNTER → 2018-01-07 | Outpatient (REF) | payer MEDICARE ==
[2018-01-09 07:53] LABS: VITAMIN B12 LEVEL 390 PG/ML (247-911)
== END ==
LOC: SKLAB3 07:00
DX: F03.90 Unspecified dementia, unspecified severity, without behavioral disturbance, psychotic disturbance, mood disturbance, and anxiety (principal); I10 Essential (primary) hypertension
CPT/HCPCS: 84443

== ENCOUNTER → 2018-02-13 | Outpatient (REF) | payer MEDICARE ==
[2018-02-13 13:27] LABS: AMORPHOUS SEDIMENT SMALL (NEGATIVE); APPEARANCE, URINE CLOUDY (CLEAR); BACTERIA, URINE AUTO NEGATIVE (NEGATIVE); BILIRUBIN, URINE AUTO NEGATIVE (NEGATIVE); BLOOD, URINE BLOOD NEGATIVE (NEGATIVE); COLOR, URINE YELLOW (YELLOW); GLUCOSE, URINE (UA) AUTO NEGATIVE (NEGATIVE); KETONE, URINE AUTO NEGATIVE (NEGATIVE); LEUKOCYTE ESTERASE, URINE AUTO NEGATIVE (NEGATIVE); MUCUS, URINE SMALL (NEGATIVE); NITRITE, URINE AUTO NEGATIVE (NEGATIVE); PROTEIN, URINE AUTO NEGATIVE (NEGATIVE); RBC, URINE AUTO 2 /HPF (0-3); SPECIFIC GRAVITY URINE AUTO 1.021 (1.002-1.035); SQUAMOUS EPITHELIAL CELL UR AU 0 /HPF (0-6); UROBILINOGEN, URINE AUTO 0.2 mg/dL (0.0-2.0); WBC, URINE AUTO 2 /HPF (0-3)
[2018-02-13 14:02] LABS: HEMATOCRIT 38.4 % (36.0-47.0); MEAN CORPUSCULAR HEMOGLOBIN 31.6 pg (27.0-33.0); MEAN CORPUSCULAR HGB CONC 33.9 g/dl (32.0-36.5); MEAN CORPUSCULAR VOLUME 93.4 fl (80.0-96.0); PLATELET COUNT, AUTOMATED 218 10^3/uL (150-450); RED BLOOD COUNT 4.11 10^6/uL (4.00-5.40); WHITE BLOOD COUNT 7.4 10^3/uL (4.0-10.0)
[2018-02-13 14:29] LABS: ALBUMIN 3.1 GM/DL (3.2-5.2); ALBUMIN/GLOBULIN RATIO 1.03 (1.00-1.93); ALKALINE PHOSPHATASE 232 U/L (45-117); ALT/SGPT 66 U/L (12-78); ANION GAP 7 MEQ/L (8-16); AST/SGOT 29 U/L (7-37); BILIRUBIN,TOTAL 0.5 MG/DL (0.2-1.0); BLOOD UREA NITROGEN 12 MG/DL (7-18); CALCIUM LEVEL 8.5 MG/DL (8.8-10.2); CARBON DIOXIDE LEVEL 29 MEQ/L (21-32); CHLORIDE LEVEL 102 MEQ/L (98-107); CREATININE FOR GFR 0.38 MG/DL (0.55-1.30); GLOMERULAR FILTRATION RATE > 60.0 (>39); GLUCOSE, FASTING 101 MG/DL (70-100); POTASSIUM SERUM 4.3 MEQ/L (3.5-5.1); SODIUM LEVEL 138 MEQ/L (136-145); TOTAL PROTEIN 6.1 GM/DL (6.4-8.2)
== END ==
LOC: SKLAB3 12:43
DX: R53.83 Other fatigue (principal)
CPT/HCPCS: 80053

== ENCOUNTER → 2018-02-19 | Outpatient (REF) | payer MEDICARE | LOC: SKLAB3 08:24 | DX: K56.41 Fecal impaction (principal); M25.552 Pain in left hip; R14.0 Abdominal distension (gaseous); Z96.642 Presence of left artificial hip joint | CPT/HCPCS: 74018 ==

== ENCOUNTER → 2018-04-17 | Outpatient (REF) | payer MEDICARE | LOC: SKLAB3 13:32 | DX: N39.0 Urinary tract infection, site not specified (principal) | CPT/HCPCS: 87186 ==

== ENCOUNTER → 2019-12-30 | Outpatient (REF) | payer MEDICARE ==
[~2019-12-30] MED LIST changes: +CARB1TAB20 PO; +CARB200C4 PO; +CARB200T98 PO; +FOSI20TA PO; -FOSI20TA5 PO; +LOVE1INJ SC; +MACR100C43 PO
[2019-12-30 22:45] LABS: APPEARANCE, URINE CLOUDY (CLEAR); BACTERIA, URINE AUTO 3+ (NEGATIVE); BILIRUBIN, URINE AUTO NEGATIVE (NEGATIVE); BLOOD, URINE BLOOD NEGATIVE (NEGATIVE); COLOR, URINE YELLOW (YELLOW); GLUCOSE, URINE (UA) AUTO NEGATIVE (NEGATIVE); KETONE, URINE AUTO NEGATIVE (NEGATIVE); LEUKOCYTE ESTERASE, URINE AUTO 2+ (NEGATIVE); MUCUS, URINE LARGE (NEGATIVE); NITRITE, URINE AUTO NEGATIVE (NEGATIVE); PROTEIN, URINE AUTO NEGATIVE (NEGATIVE); RBC, URINE AUTO 5 /HPF (0-3); SPECIFIC GRAVITY URINE AUTO 1.024 (1.002-1.035); SQUAMOUS EPITHELIAL CELL UR AU 4 /HPF (0-6); UROBILINOGEN, URINE AUTO 0.2 mg/dL (0.0-2.0); WBC, URINE AUTO 111 /HPF (0-3)
== END ==
LOC: SKLAB3 22:05
PROVIDERS: ATTEND Family Medicine
DX: R41.82 Altered mental status, unspecified (principal)

== ENCOUNTER → 2020-01-01 | Outpatient (REF) | payer MEDICARE ==
[2020-01-01 18:27] LABS: APPEARANCE, URINE HAZY (CLEAR); BACTERIA, URINE AUTO 1+ (NEGATIVE); BILIRUBIN, URINE AUTO NEGATIVE (NEGATIVE); BLOOD, URINE BLOOD NEGATIVE (NEGATIVE); COLOR, URINE YELLOW (YELLOW); GLUCOSE, URINE (UA) AUTO NEGATIVE (NEGATIVE); KETONE, URINE AUTO NEGATIVE (NEGATIVE); LEUKOCYTE ESTERASE, URINE AUTO 2+ (NEGATIVE); MUCUS, URINE SMALL (NEGATIVE); NITRITE, URINE AUTO NEGATIVE (NEGATIVE); PROTEIN, URINE AUTO NEGATIVE (NEGATIVE); RBC, URINE AUTO 3 /HPF (0-3); SPECIFIC GRAVITY URINE AUTO 1.016 (1.002-1.035); SQUAMOUS EPITHELIAL CELL UR AU 0 /HPF (0-6); UROBILINOGEN, URINE AUTO 0.2 mg/dL (0.0-2.0); WBC, URINE AUTO 120 /HPF (0-3)
== END ==
LOC: SKLAB6 18:06
PROVIDERS: ATTEND Family Medicine
DX: R41.82 Altered mental status, unspecified (principal); R53.83 Other fatigue

== ENCOUNTER → 2020-01-13 | Outpatient (REF) | payer MEDICARE ==
[2020-01-14 11:51] LABS: APPEARANCE, URINE CLOUDY (CLEAR); BACTERIA, URINE AUTO 2+ (NEGATIVE); BILIRUBIN, URINE AUTO NEGATIVE (NEGATIVE); BLOOD, URINE BLOOD 1+ (NEGATIVE); COLOR, URINE YELLOW (YELLOW); GLUCOSE, URINE (UA) AUTO NEGATIVE (NEGATIVE); KETONE, URINE AUTO NEGATIVE (NEGATIVE); LEUKOCYTE ESTERASE, URINE AUTO 3+ (NEGATIVE); MUCUS, URINE SMALL (NEGATIVE); NITRITE, URINE AUTO NEGATIVE (NEGATIVE); PROTEIN, URINE AUTO 1+ mg/dL (NEGATIVE); RBC, URINE AUTO 12 /HPF (0-3); SPECIFIC GRAVITY URINE AUTO 1.024 (1.002-1.035); SQUAMOUS EPITHELIAL CELL UR AU 2 /HPF (0-6); TRANSITIONAL EPITHELIAL AUTO 1 /HPF; UROBILINOGEN, URINE AUTO 0.2 mg/dL (0.0-2.0); WBC, URINE AUTO TNTC /HPF (0-3)
== END ==
LOC: SKLAB3 07:00
PROVIDERS: ATTEND Family Medicine
DX: R53.83 Other fatigue (principal)

== ENCOUNTER → 2020-01-14 | Outpatient (REF) | payer MEDICARE ==
[2020-01-14 11:39] LABS: BASO % 0.4 % (0.0-1.0); EOS # 0.1 10^3/uL (0.0-0.5); EOS % 2.5 % (0.0-3.0); HEMATOCRIT 41.1 % (36.0-47.0); HEMOGLOBIN 14.3 g/dl (12.0-15.5); LYMPH # 1.1 10^3/uL (1.5-5.0); LYMPH % 24.1 % (24.0-44.0); MEAN CORPUSCULAR HEMOGLOBIN 32.2 pg (27.0-33.0); MEAN CORPUSCULAR HGB CONC 34.8 g/dl (32.0-36.5); MEAN CORPUSCULAR VOLUME 92.6 fl (80.0-96.0); MONO # 0.5 10^3/uL (0.0-0.8); MONO % 10.5 % (0.0-5.0); NEUTROPHILS # 2.8 10^3/uL (1.5-8.5); NEUTROPHILS % 62.3 % (36.0-66.0); PLATELET COUNT, AUTOMATED 272 10^3/uL (150-450); RED BLOOD COUNT 4.44 10^6/uL (4.00-5.40); WHITE BLOOD COUNT 4.5 10^3/uL (4.0-10.0)
[2020-01-14 12:06] LABS: BLOOD UREA NITROGEN 16 MG/DL (7-18); CALCIUM LEVEL 8.8 MG/DL (8.8-10.2); CARBON DIOXIDE LEVEL 26 MEQ/L (21-32); CHLORIDE LEVEL 110 MEQ/L (98-107); CREATININE FOR GFR 0.62 MG/DL (0.55-1.30); GLOMERULAR FILTRATION RATE > 60.0 (>39); GLUCOSE, FASTING 87 MG/DL (70-100); POTASSIUM SERUM 4.3 MEQ/L (3.5-5.1); SODIUM LEVEL 142 MEQ/L (136-145)
== END ==
LOC: SKLAB3 07:01
PROVIDERS: ATTEND Family Medicine
DX: R53.83 Other fatigue (principal)

== ENCOUNTER → 2020-02-01 | Outpatient (REF) | LOC: SKLAB3 09:44 | PROVIDERS: ATTEND Internal Medicine | DX: Z03.818 Encounter for observation for suspected exposure to other biological agents ruled out (principal) ==

== ENCOUNTER → 2020-08-03 | Outpatient (REF) | LOC: SKLAB3 11:32 | DX: Z20.828 Contact with and (suspected) exposure to other viral communicable diseases (principal) ==

== ENCOUNTER → 2020-08-09 | Outpatient (REF) | payer MEDICARE | LOC: SKLAB3 08-08 14:00 → EDSTATUS 09-01 14:05 | PROVIDERS: ATTEND Internal Medicine | DX: Z20.828 Contact with and (suspected) exposure to other viral communicable diseases (principal) ==

== ENCOUNTER → 2020-08-16 | Outpatient (REF) | payer MEDICARE | LOC: SKLAB3 08:00 | PROVIDERS: ATTEND Internal Medicine | DX: Z20.828 Contact with and (suspected) exposure to other viral communicable diseases (principal) ==

== ENCOUNTER → 2020-08-23 | Outpatient (REF) | payer MEDICARE | LOC: SKLAB3 08:00 | PROVIDERS: ATTEND Internal Medicine | DX: Z20.828 Contact with and (suspected) exposure to other viral communicable diseases (principal) ==

== ENCOUNTER → 2020-08-30 | Outpatient (REF) | payer MEDICARE | LOC: SKLAB3 07:00 | DX: Z20.828 Contact with and (suspected) exposure to other viral communicable diseases (principal) ==

== ENCOUNTER → 2020-09-06 | Outpatient (REF) | payer MEDICARE | LOC: SKLAB3 10:22 | DX: Z20.828 Contact with and (suspected) exposure to other viral communicable diseases (principal) ==

== ENCOUNTER → 2020-09-13 | Outpatient (REF) | payer MEDICARE | LOC: SKLAB3 07:00 | DX: Z20.828 Contact with and (suspected) exposure to other viral communicable diseases (principal) ==

== ENCOUNTER → 2020-09-20 | Outpatient (REF) | payer MEDICARE | LOC: SKLAB3 07:13 | DX: Z20.828 Contact with and (suspected) exposure to other viral communicable diseases (principal) ==

== ENCOUNTER → 2020-09-27 | Outpatient (REF) | payer MEDICARE | LOC: SKLAB3 09:57 | PROVIDERS: ATTEND Internal Medicine | DX: Z11.52 Encounter for screening for COVID-19 (principal) ==

== ENCOUNTER → 2020-10-04 | Outpatient (REF) | payer MEDICARE | LOC: SKLAB3 07:00 | PROVIDERS: ATTEND Internal Medicine | DX: Z20.822 Contact with and (suspected) exposure to COVID-19 (principal) ==

== ENCOUNTER → 2020-10-11 | Outpatient (REF) | payer MEDICARE | LOC: SKLAB3 07:00 | PROVIDERS: ATTEND Internal Medicine | DX: Z20.822 Contact with and (suspected) exposure to COVID-19 (principal) ==

== ENCOUNTER → 2020-10-18 | Outpatient (REF) | payer MEDICARE | LOC: SKLAB3 14:59 | PROVIDERS: ATTEND Internal Medicine | DX: Z20.822 Contact with and (suspected) exposure to COVID-19 (principal) ==

== ENCOUNTER → 2020-10-25 | Outpatient (REF) | payer MEDICARE | LOC: SKLAB3 07:00 | PROVIDERS: ATTEND Internal Medicine | DX: Z11.52 Encounter for screening for COVID-19 (principal) ==

== ENCOUNTER → 2020-11-01 | Outpatient (REF) | payer MEDICARE | LOC: SKLAB3 11:29 | PROVIDERS: ATTEND Internal Medicine | DX: Z20.822 Contact with and (suspected) exposure to COVID-19 (principal) ==

== ENCOUNTER → 2020-11-08 | Outpatient (REF) | payer MEDICARE | LOC: SKLAB3 07:00 | PROVIDERS: ATTEND Internal Medicine | DX: Z20.822 Contact with and (suspected) exposure to COVID-19 (principal) ==

== ENCOUNTER → 2020-11-15 | Outpatient (REF) | payer MEDICARE | LOC: SKLAB3 07:00 | PROVIDERS: ATTEND Internal Medicine | DX: Z20.822 Contact with and (suspected) exposure to COVID-19 (principal) ==

== ENCOUNTER → 2020-11-29 | Outpatient (REF) | payer MEDICARE | LOC: SKLAB3 14:18 | PROVIDERS: ATTEND Internal Medicine | DX: Z20.822 Contact with and (suspected) exposure to COVID-19 (principal) ==

== ENCOUNTER → 2020-12-06 | Outpatient (REF) | payer MEDICARE | LOC: SKLAB3 07:00 | PROVIDERS: ATTEND Internal Medicine | DX: Z20.822 Contact with and (suspected) exposure to COVID-19 (principal) ==

== ENCOUNTER → 2020-12-22 | Outpatient (REF) | payer MEDICARE | LOC: SKLAB3 09:36 | PROVIDERS: ATTEND Internal Medicine | DX: Z53.8 Procedure and treatment not carried out for other reasons (principal) ==

== ENCOUNTER → 2021-01-11 | Outpatient (REF) | payer MEDICARE ==
[2021-01-11 10:30] LABS: HEMATOCRIT 43.8 % (36.0-47.0); HEMOGLOBIN 14.6 g/dl (12.0-15.5); MEAN CORPUSCULAR HEMOGLOBIN 31.8 pg (27.0-33.0); MEAN CORPUSCULAR HGB CONC 33.3 g/dl (32.0-36.5); MEAN CORPUSCULAR VOLUME 95.4 fl (80.0-96.0); PLATELET COUNT, AUTOMATED 308 10^3/uL (150-450); RED BLOOD COUNT 4.59 10^6/uL (4.00-5.40); WHITE BLOOD COUNT 6.2 10^3/uL (4.0-10.0)
[2021-01-11 11:03] LABS: ALBUMIN 3.3 GM/DL (3.2-5.2); ALT/SGPT 27 U/L (12-78); BILIRUBIN,TOTAL 0.4 MG/DL (0.2-1.0); BLOOD UREA NITROGEN 12 MG/DL (7-18); CALCIUM LEVEL 8.7 MG/DL (8.8-10.2); CARBON DIOXIDE LEVEL 28 MEQ/L (21-32); CHLORIDE LEVEL 105 MEQ/L (98-107); CHOLESTEROL LEVEL 243 MG/DL (<200); CREATININE FOR GFR 0.69 MG/DL (0.55-1.30); GLOMERULAR FILTRATION RATE > 60.0 (>32); GLUCOSE, FASTING 126 MG/DL (70-100); HDL CHOLESTEROL 60 MG/DL (>40); LDL CHOLESTEROL 165 MG/DL (<100); NON-HDL-C 183 MG/DL; POTASSIUM SERUM 4.1 MEQ/L (3.5-5.1); SODIUM LEVEL 138 MEQ/L (136-145); TOTAL PROTEIN 6.9 GM/DL (6.4-8.2); TRIGLYCERIDES LEVEL 88 MG/DL (<150)
== END ==
LOC: SKLAB3 08:14
DX: F03.90 Unspecified dementia, unspecified severity, without behavioral disturbance, psychotic disturbance, mood disturbance, and anxiety (principal); F32.9 Major depressive disorder, single episode, unspecified; Z79.899 Other long term (current) drug therapy

== ENCOUNTER → 2021-07-10 | Outpatient (REF) | payer MEDICARE | LOC: SKLAB5 10:43 | PROVIDERS: ATTEND Neuromusculoskeletal Medicine & OMM | DX: Z20.822 Contact with and (suspected) exposure to COVID-19 (principal) ==

== ENCOUNTER → 2021-07-12 | Outpatient (REF) | payer MEDICARE | LOC: SKLAB5 09:29 | PROVIDERS: ATTEND Internal Medicine | DX: Z20.822 Contact with and (suspected) exposure to COVID-19 (principal) ==

== ENCOUNTER → 2021-07-14 | Outpatient (REF) | payer MEDICARE | LOC: SKLAB5 21:46 | PROVIDERS: ATTEND Internal Medicine | DX: R50.9 Fever, unspecified (principal) ==

== ENCOUNTER → 2021-07-16 | Outpatient (REF) | payer MEDICARE | LOC: SKLAB5 06:21 | PROVIDERS: ATTEND Internal Medicine | DX: Z20.822 Contact with and (suspected) exposure to COVID-19 (principal); Z53.9 Procedure and treatment not carried out, unspecified reason ==